=== PATIENT | male | born 1950 | race Caucasian/White ===

== ENCOUNTER 2016-08-13 08:33 | Emergency (ER) | payer MEDICARE ==
[~2016-08-13] VITALS: Ht 167.6 cm; Wt 74.8 kg
[2016-08-13] MEDS ORDERED: ASPIRIN 81 MG TAB.CHEW ONE (08:41)
[2016-08-13] MEDS ORDERED: NITROGLYCERIN 0.4 MG/TAB BOTTLE ONE (08:59)
[2016-08-13] MEDS ORDERED: IV NS 0.9% 500 ML IV ONE (08:59)
[2016-08-13] MEDS ORDERED: IV SET PRIMARY PUMP SET 1 EA INFUS.SET MC ONE (08:59)
[2016-08-13] MEDS ORDERED: NITROGLYCERIN 0.4 MG/TAB BOTTLE SL ONE (09:00)
[2016-08-13] MEDS ORDERED: ASPIRIN 81 MG TAB.CHEW PO ONE (09:00)
[2016-08-13] MEDS ORDERED: IV NS 0.9% 500 ML BAG IV ONE (09:00)
[2016-08-13 09:10] LABS: BASOPHILS # (AUTO) 0.1 /CMM (0.0-0.2); BASOPHILS % (AUTO) 0.3 % (0.0-2.0); DIFF TOTAL % 100 %; EOSINOPHILS # (AUTO) 0.7 /CMM (0.0-0.7); EOSINOPHILS % (AUTO) 3.6 % (0.0-6.0); HEMATOCRIT 48 % (39-51); HEMOGLOBIN 15.8 g/dL (13.5-17.5); LYMPHOCYTES # (AUTO) 3.9 /CMM (0.8-4.8); LYMPHOCYTES % (AUTO) 21.1 % (20.0-44.0); MEAN CORPUSCULAR HEMOGLOBIN 31 PG (26.0-33.0); MEAN CORPUSCULAR HGB CONC 33 g/dl (31.0-36.0); MEAN CORPUSCULAR VOLUME 93 fL (80-96); MONOCYTES # (AUTO) 1.4 /CMM (0.1-1.30); MONOCYTES % (AUTO) 7.4 % (2.0-12.0); NEUTROPHILS # (AUTO) 12.6 /CMM (1.8-8.9); NEUTROPHILS % (AUTO) 67.6 % (43.0-81.0); PLATELET COUNT (AUTO) 272 /CMM (150-450); WHITE BLOOD COUNT (AUTO) 18.7 K/uL (4.3-11.0)
[2016-08-13 09:21] LABS: CALCIUM, SERUM 8.5 mg/dL (8.5-10.1); CREATININE 1.1 mg/dL (0.6-1.3); POTASSIUM 4.2 mmol/L (3.5-5.1)
[2016-08-13 09:25] LABS: ALBUMIN 3.5 g/dL (3.4-5.0); BILIRUBIN,DIRECT 0.1 mg/dL (0.0-0.2); BILIRUBIN,TOTAL 0.3 mg/dL (0.2-1.0); INDIRECT BILIRUBIN 0.2 mg/dL (0.0-1.1); TOTAL PROTEIN, SERUM 7.3 g/dL (6.4-8.2)
[2016-08-13 09:33] LABS: TROPONIN I 3.05 ng/mL (0.00-0.056)
[2016-08-13 09:37] LABS: INR 0.99 (0.87-1.13); PROTHROMBIN TIME 10.7 SECS (9.5-12.7)
[2016-08-13 09:39] VITALS: BP 107/65
[2016-08-13] MEDS ORDERED: HEPARIN SODIUM, PORCINE 5000 UNITS/1 ML VIAL IV ONE (10:30)
[2016-08-13] MEDS ORDERED: HEPARIN SODIUM, PORCINE 5000 UNITS/1 ML VIAL ONE (10:36)
== END 2016-08-13 10:48 ==
LOC: ER 08:35
DX: I21.3 ST elevation (STEMI) myocardial infarction of unspecified site (principal); R55 Syncope and collapse; R74.0 Nonspecific elevation of levels of transaminase and lactic acid dehydrogenase [LDH]; Z88.5 Allergy status to narcotic agent
CPT/HCPCS: 36415; 70450-TC; 71010-TC; 80048-TC; 80076-TC; 84484-TC; 85025-TC; 85730-TC; A4606; J1644; J7040; Z7610

== ENCOUNTER 2025-04-13 12:44 | Emergency (ER) | payer MEDICAID, MEDICARE ==
[~2025-04-13] VITALS: Ht 182.9 cm; Wt 93.0 kg
[2025-04-13] MEDS ORDERED: LIDOCAINE 2% JEL UROJET 10 ML MM ONE (13:03)
[2025-04-13 13:32] LABS: APPEARANCE,URINE Turbid (CLEAR); BLOOD, URINE Large Ery/uL (NEGATIVE); LEUKOCYTE ESTERASE ,URINE Large (NEGATIVE); NITRITE, URINE NEGATIVE (NEGATIVE); UGLUCOSE Negative (NEGATIVE)
[2025-04-13 13:39] LABS: PLATELET COUNT (AUTO) 277 K/uL (150-450); RED BLOOD CELL COUNT(AUTO) 3.93 MIL/uL (4.5-6.0); RED CELL DISTRIBUTION WIDTH 14.5 % (11.5-15.0); WHITE BLOOD COUNT (AUTO) 12.0 K/uL (4.3-11.0)
[2025-04-13 13:50] LABS: CALCIUM, SERUM 9.5 mg/dL (8.5-10.1); CREATININE 1.2 mg/dL (0.6-1.3); SODIUM SERUM 140 mmol/L (136-145); UREA NITROGEN, BLOOD 38 mg/dL (7-18)
[2025-04-13 13:50] LABS: ADD URINE CULTURE YES; SQUAMOUS EPITHELIAL CELL,UR 0-2 /HPF (None Seen)
[2025-04-13 13:56] LABS: ASPARTATE AMINOTRANSFERASE 17 U/L (15-37); TOTAL PROTEIN, SERUM 7.9 g/dL (6.4-8.2)
[2025-04-13] MEDS: LIDOCAINE 2% JEL UROJET 10 ML MM ONE (14:05)
[2025-04-13] MEDS ORDERED: CEFU250T85 PO (14:09)
[2025-04-13] MEDS: CEFTRIAXONE 1GM BAG (ER ONLY) 1 GM/50 ML PIGGYBACK IV ONE (14:15)
[2025-04-13] MEDS ORDERED: CEFTRIAXONE 1GM BAG (ER ONLY) 50 ML IV ONE (14:46)
[2025-04-13 14:59] LABS: EOSINOPHILS % (MANUAL) 1 % (0-4); LYMPHOCYTES % (MANUAL) 11 % (16-48); MONOCYTES % (MANUAL) 10 % (0-11.0); NEUTROPHILS % (MANUAL) 78 (42-76); PLATELET ESTIMATE ADEQUATE
[2025-04-13 15:00] VITALS: BP 125/72; TEMP 98; O2SAT 98
== END 2025-04-13 15:00 | disposition home or self-care (01) ==
LOC: ER 12:50
DX: N39.0 Urinary tract infection, site not specified (principal); R33.8 Other retention of urine; I25.10 Atherosclerotic heart disease of native coronary artery without angina pectoris; I50.9 Heart failure, unspecified; J44.9 Chronic obstructive pulmonary disease, unspecified; N40.1 Benign prostatic hyperplasia with lower urinary tract symptoms; Z88.5 Allergy status to narcotic agent; Z95.5 Presence of coronary angioplasty implant and graft; Z99.81 Dependence on supplemental oxygen
CPT/HCPCS: 99284; 96374; 51702; 85027; 80048; 87077; 87086; 80076; 85007; 87186; 81001; 36415; J3490; J0696

== ENCOUNTER 2025-04-14 11:29 | Emergency (ER) | payer MEDICARE ==
[~2025-04-14] VITALS: Ht 182.9 cm; Wt 93.0 kg
[~2025-04-14 11:29] MED LIST: CEFU250T85 PO
[2025-04-14 12:30] LABS: PLATELET COUNT (AUTO) 285 K/uL (150-450); RED BLOOD CELL COUNT(AUTO) 3.90 MIL/uL (4.5-6.0); RED CELL DISTRIBUTION WIDTH 14.5 % (11.5-15.0); WHITE BLOOD COUNT (AUTO) 15.0 K/uL (4.3-11.0)
[2025-04-14] MEDS: IV NS 0.9% 1,000 ML BAG IV ONE (12:31)
[2025-04-14 12:40] LABS: CALCIUM, SERUM 9.8 mg/dL (8.5-10.1); CREATININE 0.6 mg/dL (0.6-1.3); SODIUM SERUM 138 mmol/L (136-145); UREA NITROGEN, BLOOD 24 mg/dL (7-18)
[2025-04-14 14:54] VITALS: BP 124/64; TEMP 97.7; O2SAT 98
== END 2025-04-14 14:57 | disposition home or self-care (01) ==
LOC: ER 11:33
DX: I25.10 Atherosclerotic heart disease of native coronary artery without angina pectoris (principal); N40.1 Benign prostatic hyperplasia with lower urinary tract symptoms; N39.0 Urinary tract infection, site not specified; J44.9 Chronic obstructive pulmonary disease, unspecified; I50.9 Heart failure, unspecified; Z99.81 Dependence on supplemental oxygen; Z95.5 Presence of coronary angioplasty implant and graft; Z88.5 Allergy status to narcotic agent; Z87.440 Personal history of urinary (tract) infections; Z79.01 Long term (current) use of anticoagulants; Z46.6 Encounter for fitting and adjustment of urinary device
CPT/HCPCS: 99283; 96360; 85025; 80048; 36415; J7030